=== PATIENT | female | born 2000 | race Two or more races ===

== ENCOUNTER 2020-08-09 00:08 | Emergency (ER) | payer OTHER ==
[~2020-08-09] VITALS: Ht 162.6 cm; Wt 59.0 kg
--- NOTE | 2020-08-09 01:44 | NUR ---
PT NOTED W/ BRUISED AREA UNDER L EYE. PER PT SHE FELL DOWN YESTERDAY AND HIT HER HEAD. SHE ADDED, SHE WAS SEEN AT [facility] BUT NO X RAY OR CT SCAN WAS DONE. MADE AWARE W. AN ORDER FOR HEAD AND ORBITAL CT.
[2020-08-09 02:04] LABS: BASOPHILS % (AUTO) 0.3 % (0.0-2.0); EOSINOPHILS % (AUTO) 2.3 % (0.0-6.0); HEMATOCRIT 35 % (33-45); HEMOGLOBIN 11.7 g/dL (11.5-14.8); LYMPHOCYTES # (AUTO) 1.3 /CMM (0.8-4.8); LYMPHOCYTES % (AUTO) 28.2 % (20.0-44.0); MEAN CORPUSCULAR HGB CONC 33 g/dl (31.0-36.0); MEAN CORPUSCULAR VOLUME 86 fL (82-100); MONOCYTES # (AUTO) 0.5 /CMM (0.1-1.30); NEUTROPHILS # (AUTO) 2.7 /CMM (1.8-8.9); NEUTROPHILS % (AUTO) 59.2 % (43.0-81.0); PLATELET COUNT (AUTO) 261 /CMM (150-450); RED BLOOD CELL COUNT(AUTO) 4.12 MIL/uL (4.0-5.2); WHITE BLOOD COUNT (AUTO) 4.6 K/uL (4.3-11.0)
--- NOTE | 2020-08-09 02:08 | NUR ---
PATIENT CAME TO THE ER BED 11 C/O FEELING DEPRESSED. PATIENT STATES THAT SHE WENT TO [facility] AND WAS SENT [facility] ER TO GET TRANSFERRED BACK TO [facility] FOR ADMISSION. PATIENT IS AAOX4. NO SOB .BREATHING EVENLY AND UNLABORED ON ROOM AIR. CONNECTED TO THE MONITOR. PATIENT DENIES SI/HI.
--- NOTE | 2020-08-09 02:12 | NUR ---
PATIENT TAKEN TO CT.
--- NOTE | 2020-08-09 02:19 | NUR ---
COVID SWAB COLLECTED AND SENT TO THE LAB.
[2020-08-09 02:21] LABS: ALANINE AMINOTRANSFERASE 18 U/L (12-78); ALBUMIN 3.9 g/dL (3.4-5.0); ALCOHOL, BLOOD < 3 mg/dL (0-0); ALKALINE PHOSPHATASE 97 U/L (46-116); ASPARTATE AMINOTRANSFERASE 21 U/L (15-37); BILIRUBIN,DIRECT 0.1 mg/dL (0.0-0.2); BILIRUBIN,TOTAL 0.5 mg/dL (0.2-1.0); CALCIUM, SERUM 9.1 mg/dL (8.5-10.1); CARBON DIOXIDE 27 mmol/L (21-32); CHLORIDE 105 mmol/L (98-107); CREATININE 0.8 mg/dL (0.6-1.3); GLUCOSE 106 mg/dL (74-106); POTASSIUM 3.4 mmol/L (3.5-5.1); SODIUM SERUM 141 mmol/L (136-145); TOTAL PROTEIN, SERUM 7.6 g/dL (6.4-8.2); UREA NITROGEN, BLOOD 10 mg/dL (7-18)
[2020-08-09 02:25] LABS: ACETAMINOPHEN < 2 ug/ml (10-30)
[2020-08-09 02:37] LABS: BILIRUBIN,URINE SMALL (NEGATIVE); COLOR,URINE YELLOW (YELLOW); LEUKOCYTE ESTERASE ,URINE NEGATIVE (NEGATIVE); NITRITE, URINE NEGATIVE (NEGATIVE); PROTEIN,URINE 30 mg/dl (NEGATIVE); UGLUCOSE NEGATIVE (NEGATIVE); UROBILINOGEN,URINE 0.2 EU/dL (0.2)
[2020-08-09 02:48] LABS: BACTERIA,URINE Moderate /HPF (None Seen); MUCUS,URINE Moderate /LPF (None Seen); SQUAMOUS EPITHELIAL CELL,UR Moderate /HPF (None Seen); URINE AMORPHOUS URATE Few /HPF (None Seen); WBC,URINE 0-2 /HPF (0-3)
--- NOTE | 2020-08-09 03:46 | NUR ---
PATIENT HAS ANOTHER CONTACT. PETE,
--- NOTE | 2020-08-09 06:24 | NUR ---
PATIENT IS SLEEPING. BREATHING EVENLY AND UNLABORED ON ROOM AIR. CONNECTED TO THE MONITOR. CALLL LIGHT IS WITHIN REACH. SITTER AT BEDSIDE.
--- NOTE | 2020-08-09 06:30 | NUR ---
TRANSFER INFORMATION: PT WILL BE TRANSFERRED TO [facility] ACCEPTING MD: DR. SCANLON UN[address]
--- NOTE | 2020-08-09 06:40 | NUR ---
CALLED CALL THE CAR FOR TRANSPORTATION. [facility] #[phone]
--- NOTE | 2020-08-09 06:45 | NUR ---
REPORT GIVEN TO STEVO LYNN FROM [facility] [place] [facility]
--- NOTE | 2020-08-09 06:48 | NUR ---
ETA FOR AMBULIFE IS 20 MINS.
[2020-08-09 07:10] VITALS: BP 109/73
== END 2020-08-09 07:11 ==
LOC: ER 00:12
DX: F32.9 Major depressive disorder, single episode, unspecified (principal); J45.909 Unspecified asthma, uncomplicated; F41.0 Panic disorder [episodic paroxysmal anxiety]; Z20.822 Contact with and (suspected) exposure to COVID-19; R22.0 Localized swelling, mass and lump, head; Z91.81 History of falling
CPT/HCPCS: 36415; 70450; 70480; 80048; 80076; 80299; 80307; 80320; 81001; 84703; 85025; 87086; 87426; 99285; C9803; G0480